=== PATIENT | male | born 1935 | race Caucasian/White ===

== ENCOUNTER 2017-09-07 13:02 | Outpatient (CLI) | payer OTHER | END 2017-09-07 15:36 | disposition home or self-care (01) | LOC: LAB 13:02 | DX: E78.00 Pure hypercholesterolemia, unspecified (principal); D63.8 Anemia in other chronic diseases classified elsewhere ==

== ENCOUNTER 2018-03-15 09:44 | Outpatient (CLI) | payer OTHER | END 2018-03-15 10:35 | disposition home or self-care (01) | LOC: LAB 09:44 | DX: D63.8 Anemia in other chronic diseases classified elsewhere (principal); E03.8 Other specified hypothyroidism; E78.2 Mixed hyperlipidemia ==

== ENCOUNTER → 2018-04-10 | Outpatient (CLI) | payer OTHER | END | disposition home or self-care (01) | LOC: RAD 501 13:56 | DX: M54.2 Cervicalgia (principal) ==

== ENCOUNTER 2018-07-28 15:21 | Emergency (ER) | payer OTHER ==
[~2018-07-28] VITALS: Ht 160 cm; Wt 73.9 kg
[2018-07-28] MEDS ORDERED: LOSARTAN-HCTZ1 EAC2 (15:39)
[2018-07-28] MEDS ORDERED: CELEBREX50 MG (15:40)
[2018-07-28] MEDS ORDERED: ASA-EC81 MG (15:40)
[2018-07-28] MEDS ORDERED: NEURONTIN300 MG (15:41)
== END 2018-07-28 18:27 | disposition home or self-care (01) ==
LOC: ER 15:21
DX: R53.1 Weakness (principal)

== ENCOUNTER → 2018-09-27 09:32 | Outpatient (CLI) | payer OTHER ==
[~2018-09-27 09:32] MED LIST: ASA-EC81 MG; CELEBREX50 MG; LOSARTAN-HCTZ1 EAC2; NEURONTIN300 MG
== END | disposition home or self-care (01) ==
LOC: LAB 09:32
DX: E03.8 Other specified hypothyroidism (principal); D63.8 Anemia in other chronic diseases classified elsewhere; E78.00 Pure hypercholesterolemia, unspecified

== ENCOUNTER 2019-03-11 14:20 | Outpatient (CLI) | payer OTHER | END 2019-03-11 14:22 | disposition home or self-care (01) | LOC: RAD 14:20 | DX: M25.561 Pain in right knee (principal) ==

== ENCOUNTER 2019-08-17 13:37 | Outpatient (CLI) | payer OTHER | END 2019-08-17 13:48 | disposition home or self-care (01) | LOC: RAD 13:37 | DX: R07.89 Other chest pain (principal) ==

== ENCOUNTER 2019-08-22 08:06 | Outpatient (CLI) | payer OTHER | END 2019-08-22 08:30 | disposition home or self-care (01) | LOC: LAB 08:06 | DX: D63.8 Anemia in other chronic diseases classified elsewhere (principal); E03.8 Other specified hypothyroidism; E78.00 Pure hypercholesterolemia, unspecified ==

== ENCOUNTER 2019-08-28 13:40 | Outpatient (CLI) | payer OTHER | END 2019-08-28 13:49 | disposition home or self-care (01) | LOC: NUCLEAR 13:40 | DX: M85.89 Other specified disorders of bone density and structure, multiple sites (principal) ==

== ENCOUNTER → 2020-02-27 08:20 | Outpatient (CLI) | payer OTHER | END | disposition home or self-care (01) | LOC: LAB 08:20 | PROVIDERS: ATTEND Internal Medicine | DX: D50.8 Other iron deficiency anemias (principal); E11.9 Type 2 diabetes mellitus without complications; E78.2 Mixed hyperlipidemia; N40.0 Benign prostatic hyperplasia without lower urinary tract symptoms; R94.5 Abnormal results of liver function studies; N39.0 Urinary tract infection, site not specified ==

== ENCOUNTER 2020-03-04 09:23 | Outpatient (CLI) | payer OTHER | END 2020-03-04 09:43 | disposition home or self-care (01) | LOC: NUCLEAR 09:23 | PROVIDERS: ATTEND Internal Medicine | DX: I10 Essential (primary) hypertension (principal); I69.30 Unspecified sequelae of cerebral infarction ==

== ENCOUNTER 2020-09-10 10:27 | Outpatient (CLI) | payer OTHER | END 2020-09-10 10:36 | disposition home or self-care (01) | LOC: RAD 10:27 | PROVIDERS: ATTEND Physical Medicine & Rehabilitation | DX: M17.11 Unilateral primary osteoarthritis, right knee (principal) ==

== ENCOUNTER 2021-10-19 08:16 | Outpatient (CLI) | payer OTHER | END 2021-10-19 08:24 | disposition home or self-care (01) | LOC: NUCLEAR 08:16 | PROVIDERS: ATTEND Internal Medicine | DX: M81.0 Age-related osteoporosis without current pathological fracture (principal) ==

== ENCOUNTER 2021-10-30 07:38 | Outpatient (CLI) | payer OTHER | END 2021-10-30 07:39 | disposition home or self-care (01) | LOC: NUCLEAR 07:38 | PROVIDERS: ATTEND Internal Medicine | DX: I73.9 Peripheral vascular disease, unspecified (principal); I77.1 Stricture of artery; I82.409 Acute embolism and thrombosis of unspecified deep veins of unspecified lower extremity ==

== ENCOUNTER 2021-10-31 08:19 | Outpatient (CLI) | payer OTHER | END 2021-10-31 08:20 | disposition home or self-care (01) | LOC: NUCLEAR 08:19 | PROVIDERS: ATTEND Internal Medicine | DX: I82.403 Acute embolism and thrombosis of unspecified deep veins of lower extremity, bilateral (principal); I73.9 Peripheral vascular disease, unspecified; I77.1 Stricture of artery ==

== ENCOUNTER 2024-01-18 10:09 | Outpatient (CLI) | payer OTHER | END 2024-01-18 10:12 | disposition home or self-care (01) | LOC: RAD 10:09 | PROVIDERS: ATTEND Internal Medicine | DX: M62.830 Muscle spasm of back (principal); M54.50 Low back pain, unspecified ==

== ENCOUNTER 2024-02-15 11:49 | Emergency (ER) | payer OTHER ==
[~2024-02-15] VITALS: Ht 160 cm; Wt 70.3 kg
[2024-02-15] MEDS ORDERED: ZETIA10 MG (11:57)
[2024-02-15] MEDS ORDERED: KETOROLAC TROMETHAMINE 60 MG VIAL IM ONE (13:45)
[2024-02-15] MEDS ORDERED: KETOROLAC TROMETHAMINE 30 MG VIAL ONE (13:49)
== END 2024-02-15 14:39 ==
LOC: ER 11:49
DX: M25.561 Pain in right knee (principal); I10 Essential (primary) hypertension
CPT/HCPCS: 96372; 99282; J1885

== ENCOUNTER 2024-09-23 18:39 | Emergency (ER) | payer OTHER ==
[~2024-09-23] VITALS: Ht 165.1 cm; Wt 63.5 kg
[~2024-09-23 18:39] MED LIST changes: +ZETIA10 MG
== END 2024-09-23 22:15 | disposition home or self-care (01) ==
LOC: ER 18:39
DX: M13.161 Monoarthritis, not elsewhere classified, right knee (principal); I10 Essential (primary) hypertension; E11.9 Type 2 diabetes mellitus without complications